=== PATIENT | female | born 1960 | race Caucasian/White ===

== ENCOUNTER → 2017-06-26 | Outpatient (CLI) | payer OTHER ==
[~2017-06-26] MED LIST: APAP650 PO; AUGMENTIN 875-1 EACH PO; AUGMENTIN 875875 MG PO; CELEXA10 MG PO; COZAAR 50 MG TA50 M1 PO; CYMBALTA60 MG PO; DELSYM COU30 MG/5 M1 PO; EQL FISH OIL 11 EAC2 PO; FLEXERIL PO; FLOMAX0.4 MG PO; HYDROCHLOROT PO; HYDROCHLOROTHIA25 M1 PO; HYDROCODON-ACE1 EAC5 PO; LEVAQUIN 500 M500 M2 PO; LEVAQUIN 750 M750 MG PO; LO-DOSE ASPIRIN81 M1 PO; LOPRESSOR50 MG PO; LOVASTATIN 20 M20 MG PO; MEDROLDOSEPACK PO; NORCO 10-325 T1 EACH PO; OSELB75 PO; PANTOPRAZOLE SO40 M1 PO; PREDNISONE 10 M10 M1 PO; PRILOSEC 20 MG20 MG PO; PROAIR HFA8.5 GM INH; RED YEAST RICE600 MG PO; SINGULAIR 10 MG10 M1 PO; SYMBICORT160 MCG/4. INH; TESSALON PERLE100 MG PO; TOPROL XL50 MG PO; TYLENOL PM EX-1 EACH PO; VITAMIN D1000 UNI2 PO
== END ==
LOC: M.RAD 12:59
DX: J11.1 Influenza due to unidentified influenza virus with other respiratory manifestations (principal); Z90.49 Acquired absence of other specified parts of digestive tract

== ENCOUNTER → 2018-03-27 | Outpatient (CLI) | payer BC ==
[~2018-03-27] MED LIST changes: +CARTIA XT180 M1 PO; +CIPRO500 MG PO; +COREG25 MG PO; +FLAGYL500 M1 PO; +HYDROCHLOROTHIA25 M2 PO; +LOMOTIL TABLET1 EACH PO
[2018-03-27 13:19] LABS: ABSOLUTE EOSINOPHILS 0.2 thou/uL (0.0-0.7); ABSOLUTE MONOCYTES 0.5 thou/uL (0.0-1.2); ABSOLUTE NEUTROPHILS 4.9 thou/uL (1.6-8.1); BASOPHILS 0.6 %; EOSINOPHILS 3.2 %; HEMATOCRIT 37.8 % (37.0-47.0); HEMOGLOBIN 12.2 gm/dL (12.0-15.0); LYMPHOCYTES 25.9 %; MCH 27.8 pg (26.0-34.0); MCHC 32.4 g/dL (28.0-37.0); MCV 85.7 fL (80.0-100.0); MONOCYTES 7.1 %; MPV 7.1 fl. (7.2-11.1); NUCLEATED RBCS 0 /100WBC; PLATELET COUNT* 367 thou/uL (150-400); POLYS 63.2 %; RBC 4.41 mil/uL (4.20-5.00); WBC 7.7 thou/uL (4.0-11.0)
[2018-03-27 13:20] LABS: URINE BILIRUBIN NEGATIVE (Negative); URINE BLOOD NEGATIVE (Negative); URINE CLARITY CLEAR; URINE COLOR YELLOW; URINE GLUCOSE-RANDOM NEGATIVE (Negative); URINE KETONES NEGATIVE (Negative); URINE LEUKOCYTES NEGATIVE (Negative); URINE NITRITE NEGATIVE (Negative); URINE PROTEIN NEGATIVE (Negative); URINE UROBILINOGEN 0.2 E.U./dl (0.2-1.0)
[2018-03-27 13:31] LABS: ALBUMIN 3.7 g/dL (3.4-5.0); CALCIUM 9.1 mg/dL (8.5-10.1); CREATININE 0.8 mg/dL (0.6-1.3); POTASSIUM 3.9 mmol/L (3.5-5.1); TOTAL BILIRUBIN 0.4 mg/dL (<0.1-1.0); TOTAL PROTEIN 7.2 g/dL (6.4-8.2)
== END ==
LOC: M.CT 12:00
PROVIDERS: Family Medicine
DX: J98.11 Atelectasis (principal); K63.89 Other specified diseases of intestine; R10.31 Right lower quadrant pain; R19.7 Diarrhea, unspecified

== ENCOUNTER 2018-04-01 18:06 | Emergency (ER) | payer BC ==
[~2018-04-01] VITALS: Ht 144.8 cm; Wt 78.9 kg
[~2018-04-01 18:06] MED LIST changes: -CARTIA XT180 M1 PO; -CIPRO500 MG PO; -COREG25 MG PO; -FLAGYL500 M1 PO; -HYDROCHLOROTHIA25 M2 PO; -LOMOTIL TABLET1 EACH PO
[2018-04-01] MEDS ORDERED: COREG25 MG PO (18:29)
[2018-04-01] MEDS ORDERED: TYLENOL PM EX-1 EACH PO (18:30)
[2018-04-01] MEDS ORDERED: HYDROCHLOROTHIA25 M2 PO (18:30)
[2018-04-01] MEDS ORDERED: CARTIA XT180 M1 PO (18:31)
[2018-04-01] MEDS ORDERED: CIPRO500 MG PO (18:31)
[2018-04-01] MEDS ORDERED: FLAGYL500 M1 PO (18:32)
[2018-04-01 18:58] LABS: URINE BILIRUBIN NEGATIVE (Negative); URINE BLOOD TRACE (Negative); URINE CLARITY CLEAR; URINE COLOR YELLOW; URINE GLUCOSE-RANDOM NEGATIVE (Negative); URINE KETONES NEGATIVE (Negative); URINE LEUKOCYTES-REFLEX NEGATIVE (Negative); URINE NITRITE-REFLEX NEGATIVE (Negative); URINE PROTEIN TRACE (Negative); URINE UROBILINOGEN 0.2 E.U./dl (0.2-1.0)
[2018-04-01 19:07] LABS: ABSOLUTE BASOPHILS 0.1 thou/uL (0.0-0.2); ABSOLUTE EOSINOPHILS 0.2 thou/uL (0.0-0.7); ABSOLUTE LYMPHOCYTES 1.3 thou/uL (0.8-5.3); ABSOLUTE MONOCYTES 0.8 thou/uL (0.0-1.2); ABSOLUTE NEUTROPHILS 8.1 thou/uL (1.6-8.1); BASOPHILS 0.8 %; EOSINOPHILS 2.2 %; HEMOGLOBIN 12.4 gm/dL (12.0-15.0); LYMPHOCYTES 12.5 %; MCH 27.8 pg (26.0-34.0); MCHC 32.5 g/dL (28.0-37.0); MCV 85.4 fL (80.0-100.0); MONOCYTES 7.9 %; NUCLEATED RBCS 0 /100WBC; PLATELET COUNT* 368 thou/uL (150-400); POLYS 76.6 %; RBC 4.46 mil/uL (4.20-5.00); WBC 10.5 thou/uL (4.0-11.0)
[2018-04-01 19:17] LABS: CALCIUM 8.9 mg/dL (8.5-10.1); CREATININE 1.3 mg/dL (0.6-1.3); POTASSIUM 3.7 mmol/L (3.5-5.1)
[2018-04-01 19:21] LABS: TOTAL BILIRUBIN 0.3 mg/dL (<0.1-1.0); TOTAL PROTEIN 7.3 g/dL (6.4-8.2)
[2018-04-01] MEDS ORDERED: LOMOTIL TABLET1 EACH PO (19:44)
[2018-04-01 20:12] VITALS: BP 145/91
== END 2018-04-01 20:13 | disposition home or self-care (01) ==
LOC: M.ERS 18:06
PROVIDERS: Nurse Practitioner Family
DX: R19.7 Diarrhea, unspecified (principal); G89.29 Other chronic pain; M54.9 Dorsalgia, unspecified; F32.9 Major depressive disorder, single episode, unspecified; F41.9 Anxiety disorder, unspecified; I10 Essential (primary) hypertension; E78.00 Pure hypercholesterolemia, unspecified; Z91.048 Other nonmedicinal substance allergy status; Z91.040 Latex allergy status; Z88.8 Allergy status to other drugs, medicaments and biological substances; Z90.49 Acquired absence of other specified parts of digestive tract; Z90.710 Acquired absence of both cervix and uterus; Z90.13 Acquired absence of bilateral breasts and nipples

== ENCOUNTER → 2018-10-09 | Outpatient (CLI) | payer BC ==
[~2018-10-09] MED LIST changes: +CARTIA XT180 M1 PO; +CIPRO500 MG PO; +COREG25 MG PO; +FLAGYL500 M1 PO; +HYDROCHLOROTHIA25 M2 PO; +LOMOTIL TABLET1 EACH PO
== END ==
LOC: M.RAD 07:00
DX: Z12.31 Encounter for screening mammogram for malignant neoplasm of breast (principal)

== ENCOUNTER → 2020-04-18 | Outpatient (CLI) | payer OTHER | LOC: M.ULTRA 16:51 | PROVIDERS: ATTEND Family Medicine | DX: M43.26 Fusion of spine, lumbar region (principal); M79.89 Other specified soft tissue disorders ==

== ENCOUNTER → 2020-04-25 | Outpatient (CLI) | payer OTHER | LOC: M.MRI 08:26 | PROVIDERS: ATTEND Family Medicine | DX: Z12.31 Encounter for screening mammogram for malignant neoplasm of breast (principal); M43.26 Fusion of spine, lumbar region; M48.061 Spinal stenosis, lumbar region without neurogenic claudication; M47.816 Spondylosis without myelopathy or radiculopathy, lumbar region; M54.5 Low back pain; Z98.1 Arthrodesis status ==